=== PATIENT | female | born 1935 | race Caucasian/White ===

== ENCOUNTER 2016-10-19 11:19 | Emergency (ER) | payer MEDICARE, OTHER ==
[~2016-10-19] VITALS: Ht 162.6 cm; Wt 86.4 kg
[~2016-10-19 11:19] MED LIST: CHOL500011 PO; LEVO75TA4 PO
[2016-10-19 11:45] VITALS: BP 171/90; PULSE 72; RESP 20; O2SAT 95
[2016-10-19 12:43] LABS: EOSINOPHILS % (AUTO) 3.1 % (0-5); MONOCYTES % (AUTO) 8.6 % (4-12); Mean Corpuscular Volume 90.7 fL (81-100); NEUTROPHILS % (AUTO) 59.4 % (40-74); Platelet Count 270 bil/L (150-400)
[2016-10-19 13:10] LABS: TROPONIN T < 0.010 ug/L (0.0-0.011)
--- NOTE | 2016-10-19 13:37 | DRSVH ---
PROCEDURE: X-RAY CHEST ONE VIEW, PORTABLE ([id number]) INDICATIONS: CHEST PAIN TECHNIQUE: One view of the chest was acquired. COMPARISON: [facility], , CHEST 1VW (PORTABLE), 02/17/2015, 13:13. FINDINGS: Surgical changes and devices: Right Port-A-Cath is unchanged. Multiple surgical clips are noted overl michael the lung bases. Lungs and pleura: No pleural effusions or pneumothorax. Lungs are clear. Mediastinum: Mediastinal contours appear normal. Heart size is normal. Bones and chest wall: No suspicious bony lesions. Overlying soft tissues appear unremarkable. IMPRESSION: No acute pulmonary process. Dictated by: Jewell Horta M.D. on 10/19/2016 at 13:35 Approved by: Jewell Horta M.D. on 10/19/2016 at 13:35
--- NOTE | 2016-10-19 13:56 | ED.REPORT ---
HPI-General Illness Date of Service Oct 19, 2016 ED Provider: MD Wilfred This is a 81 year old female presenting to the ED with history of hyperlipidemia and hyperparathyroid complaining of sudden onset dizziness that occurred 5 hours ago. Pt was doing chores around her home when she suddenly became dizzy and lightheaded. She immediately sat down and the symptoms resolved within 1-2 minutes. She states that her "eyes are not adjusting right, " and that she just "doesn't feel right." Pt denies fever, chills, nausea, vomiting diaphoresis, or loss of consciousness. Nursing Notes Stated Complaint: PNEUMONIA Chief Complaint: Respiratory Complaints Nursing Notes Reviewed: Yes Allergies: Coded Allergies: Penicillins (Verified Allergy, Severe, RASH, 02/07/15) codeine (Verified Adverse Reaction, Severe, N/V, 02/07/15) Uncoded Allergies: ENVIRONMENTAL (Adverse Reaction, Severe, ASTHMA, 01/22/15) Scheduled Cholecalciferol (Vitamin D3) (Vitamin D3) 5,000 Unit Tablet 5,000 UNIT PO prn Levothyroxine (Levothyroxine) 75 Mcg Tablet 75 MCG PO DAILY General Time Seen by MD: 13:55 Chief Complaint Dizziness Hx Obtained From: Patient Arrived By: Walk-in Sudden in Onset?: Yes Onset Occurred: 5 - 8 hours ago Symptom Duration: Since onset Severity: Current: No pain currently Pertinent Negative: Pt denies other symptoms Recent Healthcare: No recent doctor visit, No recent hospitalization Similar Sx Previous: No Past Medical History Past Medical History Hyperlipidemia hyperparathyroid history of bronchospasm, reactive airway disease GERD (history of erosive esophagitis) Hernia History of mild abnormality LFTs Colon polyps Reports: Cancer Reports: Thyroid disease Past Surgical History Port-A-Cath Breast Surgeries, bilateral lumpectomy for cancer parathyroid exploration Reports: Hysterectomy Smoking History Never Smoker Social History Drug Use: Denies drug use Ambulatory Status Independent NIH Stroke Scale Level of Consciousness: Alert and responsive (0) Ask Month & Age: Both questions right (0) Open/Close Eyes/Hand Fundraising Manager: Performs both tasks (0) Horizontal EO Movements: None (0) Visual Jerome: No visual loss (0) Facial Palsy: Normal symmetry (0) Right Arm Motor Drift (10s): No drift 10 sec (0) Left Arm Motor Drift (10s): No drift 10 sec (0) Right Leg Motor Drift (5s): No drift 5 sec (0) Left Leg Motor Drift (5s): No drift 5 sec (0) Limb Ataxia FNF/Heel-Panda: Ataxia in 1 limb (1) (L leg) Sensation (Arms/Legs/Face): No sensory loss (0) Language Aphasia: No aphasia, normal (0) Dysarthria: No dysarthria, normal (0) Extinction/Inattention: No exctinct/inattent (0) NIHSS Score: 1 Time NIHSS Performed: 14:07 Date NIHSS Performed: Oct 19, 2016 Review of Systems Full Review of Systems Constitutional: Denies: Chills, Fever Respiratory: Denies: Non-productive cough, Shortness of breath GI: Denies: Abdominal pain, Nausea, Vomiting Neurologic: Reports: Dizziness, Lightheaded, Vision change, Denies: Change LOC, Headache, Numbness Complete sys rev & neg: except as marked. Physical Exam Vital Signs Vital Signs Date Time Temp Pulse Resp B/P Pulse Ox O2 Delivery O2 Flow Rate FiO2 10/19/16 15:13 69 14 158/73 98 Room Air 10/19/16 11:45 36.5 72 20 171/90 95 Room Air Initial VS: Reviewed General/Constitutional: Well-developed, Well-nourished Head / Eyes: Atraumatic, Normocephalic, PERRL ENT: Mucous membranes moist, Conjunctiva normal, No scleral icterus Neck: Supple, Non-tender, Full range of motion Respiratory: Breath sounds normal, Clear to auscultation, No respiratory distress Cardiovascular: Regular rate & rhythm, Heart sounds normal, Intact distal pulses Abdomen / GI: Soft, Non-tender, No guarding, No rebound, No distention Extremities: Vascular intact, Neuro intact, No swelling, No tenderness Skin: Warm, Dry, No cyanosis Psychiatric: Mood/affect normal, Behavior normal, Normal thought content Neurologic: Oriented X3 Narrow based gait without ataxia but has a sensation of double vision, lightheadedness, and unsteadiness. NIH stroke scale 1 Interpretation & Diagnostics BRAIN MRI IMPRESSION: 1. Volume loss and small vessel ischemic disease. 2. No acute intracranial abnormality; no recent infarct. Dictated by: Jori Ashford M.D. on 10/19/2016 at 15:11 Approved by: Jori Ashford M.D. on 10/19/2016 at 15:11 Lab Results Interpretation Result Diagram: 10/19/16 1226 10/19/16 1226 Test 10/19/16 12:26 White Blood Count 7.0th/mm3 (3.8-10.1) Red Blood Count 4.86mil/mm3 (3.90-5.20) Hemoglobin 14.6g/dL (12.0-15.6) Hematocrit 44.1% (35.0-46.0) Mean Corpuscular Volume 90.7fL (81-100) Mean Corpuscular Hemoglobin 30.0pg (27.0-35.0) Mean Corpuscular Hemoglobin Concent 33.1% (32.0-37.0) Red Cell Distribution Width 14.6% (12.3-15.4) Platelet Count 270bil/L (150-400) Neutrophils (%) (Auto) 59.4% (40-74) Lymphocytes (%) (Auto) 27.8% (14-46) Monocytes (%) (Auto) 8.6% (4-12) Eosinophils (%) (Auto) 3.1% (0-5) Basophils (%) (Auto) 1.0% (0-3) Sodium Level 141mEq/L (134-144) Potassium Level 4.4mEq/L (3.5-5.2) Chloride Level 105mEq/L (97-108) Carbon Dioxide Level 20mmol/L (18-29) Blood Urea Nitrogen 12mg/dL (8-27) Creatinine 0.78mg/dL (0.57-1.00) Estimat Glomerular Filtration Rate 102mL/min (>59) Glucose Level 100mg/dL (60-99) Calcium Level 8.9mg/dL (8.5-10.1) Total Bilirubin 0.4mg/dL (0.0-1.2) Aspartate Amino Transf (AST/SGOT) 16U/L (0-50) Alanine Aminotransferase (ALT/SGPT) 13U/L (0-32) Alkaline Phosphatase 67U/L (25-165) Troponin T < 0.010ug/L (0.0-0.011) Pro-B-Type Natriuretic Peptide 393.1pg/mL (0-738) Total Protein 6.9g/dL (6.4-8.4) Albumin 4.0g/dL (3.4-5.0) Hold Rebollar Top Tube Received (Received) ECG Interpretation ECG Interpretation: NSR at a rate of 64 Time: 14:06 Interpreted by: ED physician X-Ray Chest Interpretation Chest Xray Interpretation: IMPRESSION: No acute pulmonary process. Dictated by: Jewell Horta M.D. on 10/19/2016 at 13:35 Approved by: Jewell Horta M.D. on 10/19/2016 at 13:35 Re-Eval/Medical Decision Time of Eval: 15:23 Re-Evaluation/Progress Note: Discussed normal lab and imaging results plan for d/c, all questions addressed Counseled Regarding: Diagnosis, Lab results, Need for follow-up, When/why to return to ED Discharge & Departure Primary Impression: Generalized weakness Disposition: Home Discharge Condition All VS Reviewed: Yes Condition: Stable Additional Instructions: Your MRI was normal today, as were your x-rays, EKG and laboratory tests. We did not find a a dangerous cause for your symptoms today. Follow-up with your primary care provider in the next week if your symptoms continue to persist. Return to the emergency department for any new or worsening symptoms. Referrals: [facility] (PCP) Scribe Attestation Portions of this note were transcribed by Bibi Stanford. I, Dr. Hardin personally performed the history, physical exam and medical decision-making; I reviewed and confirmed the accuracy of the information in the transcribed note. Signed by: gabriel Og. 10/19/2016, 15:00. Jerald Hardin MD Oct 19, 2016 13:56 BIBI STANFORD Oct 19, 2016 13:59
[2016-10-19 15:13] VITALS: BP 158/73; PULSE 69; RESP 14; O2SAT 98
--- NOTE | 2016-10-19 15:13 | DRSVH ---
PROCEDURE: MRI BRAIN WITHOUT CONTRAST ([id number]) INDICATIONS: ataxia lef tleg TECHNIQUE: Non-contrast axial T1 spin echo, axial T2 fast spin echo, sagittal and axial FLAIR, coronal T2 fast s pin echo, axial gradient echo, axial diffusion and ADC through the brain. COMPARISON: [facility], , MR STROKE PROTOCOL, 05/18/2016, 19:23. FINDINGS: Image quality: Partially degraded by motion artifact. CSF spaces: Ventricles appear symmetric in size and shape. Basal cisterns are patent. No extra-axi al fluid collections. Brain: No intracranial bleeds or mass effects. There is cerebral volume loss for age. There are pe riventricular and deep white matter chronic small vessel ischemic changes. Brainstem appears normal. Diffusion-weighted images show no acute ischemic insults. No chronic ischemic insults. Normal int ravascular flow voids are present. Skull and face: Calvarial bone marrow is normal in signal. Orbits are normal. Sinuses: Sinuses and mastoids are clear. IMPRESSION: 1. Volume loss and small vessel ischemic disease. 2. No acute intracranial abnormality; no recent infarct. Dictated by: Jori Ashford M.D. on 10/19/2016 at 15:11 Approved by: Jori Asfhord M.D. on 10/19/2016 at 15:11
[2016-10-19 16:29] VITALS: BP 158/73; PULSE 69; RESP 14; O2SAT 98
[2017-02-08] MEDS ORDERED: HYG25 PO (16:02)
== END 2016-10-19 15:55 | disposition home or self-care (01) ==
LOC: SED 11:19
DX: R53.1 Weakness (principal); E78.5 Hyperlipidemia, unspecified; E21.3 Hyperparathyroidism, unspecified; J45.909 Unspecified asthma, uncomplicated; K21.9 Gastro-esophageal reflux disease without esophagitis; E07.9 Disorder of thyroid, unspecified; Z85.3 Personal history of malignant neoplasm of breast; Z88.0 Allergy status to penicillin; Z88.5 Allergy status to narcotic agent

== ENCOUNTER 2016-12-06 11:43 | Observation (INO) | payer MEDICARE, OTHER ==
[2016-12-06] VITALS (7 sets, daily range): BP systolic 136–178; BP diastolic 83–108; PULSE 81–108; RESP 13–20; O2SAT 96–97
[~2016-12-06] VITALS: Ht 161.3 cm; Wt 87.0 kg
--- NOTE | 2016-12-06 12:04 | ED.REPORT ---
HPI-Stroke / CVA Dec 06, 2016 ED Provider: Jerald Hardin MD 81 year old female with a history of hyperlipidemia and presents to the ER complaining of dizziness and double vision. Last known normal 08:00 today. She states that symptoms onset today while getting into the car to come to a routine appointment here a the residency clinic. Symptoms are described primarily as "not feeling right". Upon further questioning she admits to stumbling in her house earlier this morning, and numbness of her lower extremities from the knees down bilaterally onset about an hour ago. Patient denies any weakness, and history of CVA, DM, and HTN. She is a vague historian. Nursing Notes Stated Complaint: SICK/LACK OF BALANCE Chief Complaint: Neuro Symptoms/ Deficits Nursing Notes Reviewed: Yes Allergies: Coded Allergies: Penicillins (Verified Allergy, Severe, RASH, 02/07/15) codeine (Verified Adverse Reaction, Severe, N/V, 02/07/15) Uncoded Allergies: ENVIRONMENTAL (Adverse Reaction, Severe, ASTHMA, 01/22/15) Scheduled Cholecalciferol (Vitamin D3) (Vitamin D3) 5,000 Unit Tablet 5,000 UNIT PO prn ( Reported) Levothyroxine (Levothyroxine) 75 Mcg Tablet 75 MCG PO DAILY (Reported) General Time Seen by Provider: 12:03 Chief Complaint Vision, reduced, Dizziness Hx Obtained From: Patient Arrived By: Walk-in Time last known well 08:00 Sudden in Onset?: Yes Symptom Duration: Since onset Progression Since Onset: Unchanged Context Related History: Denies: Cerebrovascular accident, Diabetes mellitus Similar Sx Previous: No Risk Factors NIH Stroke Scale Level of Consciousness: Alert and responsive (0) Ask Month & Age: 1 question right (1) Open/Close Eyes/Hand Disability Services Coordinator: Performs both tasks (0) Horizontal EO Movements: None (0) (Double vision) Visual Jerome: No visual loss (0) Facial Palsy: Normal symmetry (0) Right Arm Motor Drift (10s): No drift 10 sec (0) Left Arm Motor Drift (10s): No drift 10 sec (0) Right Leg Motor Drift (5s): No drift 5 sec (0) Left Leg Motor Drift (5s): No drift 5 sec (0) Limb Ataxia FNF/Heel-Panda: No ataxia (0) Sensation (Arms/Legs/Face): P-prick dull but felt (1) (Right arm and face, not leg) Language Aphasia: No aphasia, normal (0) Dysarthria: No dysarthria, normal (0) Extinction/Inattention: No exctinct/inattent (0) NIHSS Score: 2 Time NIHSS Performed: 12:08 Date NIHSS Performed: Dec 06, 2016 )( CVA Risk Stratification Age >60 HyperlipidemiaNo Prior CVA/TIA Risk factors reviewed Past Medical History Past Medical History Hyperlipidemia hyperparathyroid history of bronchospasm, reactive airway disease GERD (history of erosive esophagitis) Hernia History of mild abnormality LFTs Colon polyps Reports: Cancer, Denies: Diabetes mellitus, Hypertension, Stroke Reports: Thyroid disease, Denies: Kidney disease, Renal failure, Renal insufficiency Past Surgical History Port-A-Cath Breast Surgeries, bilateral lumpectomy for cancer parathyroid exploration Reports: Hysterectomy Smoking History Never Smoker Social History Drug Use: Denies drug use Ambulatory Status Independent Review of Systems Neurologic: Reports: Dizziness, Numbness, Denies: Focal weakness, Headache, Slurred speech, Syncope, Weakness Complete sys rev & neg: except as marked. Physical Exam Initial Vital Signs Vital Signs (First) Date Time Temp Pulse Resp B/P Pulse Ox O2 Delivery O2 Flow Rate FiO2 12/06/16 11:47 36.8 103 20 178/108 96 12/06/16 13:27 Room Air Initial VS: Reviewed Abdomen / GI: Soft, Non-tender, No guarding, No rebound, No distention Extremities: Vascular intact, Neuro intact, No swelling, No tenderness Skin: Warm, Dry, No cyanosis General/Constitutional: Awake, Alert, No acute distress, Well appearing, Well developed, Well nourished Head / Eyes: Atraumatic, Normocephalic Neck: Supple, Full range of motion, No swelling, Non-tender, No carotid bruit Respiratory / Chest: Breath sounds NL, Breath sounds = bilat, No respiratory distress, No rales, No rhonchi, No wheezing Cardiovascular: Heart rate NL, Regular rhythm, Heart sounds NL, No murmurs, Peripheral circulation NL Neurologic: Speech NL, No motor deficits Mental Status: Positive: Disoriented to time Double vision. See NIH Stroke Scale in the Risk section of this note. Interpretation & Diagnostics Lab Results Interpretation Result Diagram: 12/06/16 1230 12/06/16 1230 Test 12/06/16 12:30 12/06/16 14:38 White Blood Count 7.6th/mm3 (3.8-10.1) Red Blood Count 4.64mil/mm3 (3.90-5.20) Hemoglobin 14.2g/dL (12.0-15.6) Hematocrit 42.4% (35.0-46.0) Mean Corpuscular Volume 91.4fL (81-100) Mean Corpuscular Hemoglobin 30.6pg (27.0-35.0) Mean Corpuscular Hemoglobin Concent 33.5% (32.0-37.0) Red Cell Distribution Width 14.6% (12.3-15.4) Platelet Count 277bil/L (150-400) Neutrophils (%) (Auto) 66.5% (40-74) Lymphocytes (%) (Auto) 22.1% (14-46) Monocytes (%) (Auto) 8.3% (4-12) Eosinophils (%) (Auto) 1.7% (0-5) Basophils (%) (Auto) 1.1% (0-3) Sodium Level 138mEq/L (134-144) Potassium Level 3.8mEq/L (3.5-5.2) Chloride Level 102mEq/L (97-108) Carbon Dioxide Level 22mmol/L (18-29) Blood Urea Nitrogen 9mg/dL (8-27) Creatinine 0.81mg/dL (0.57-1.00) Estimat Glomerular Filtration Rate 98mL/min (>59) Glucose Level 109mg/dL (60-99) Calcium Level 8.9mg/dL (8.5-10.1) Total Bilirubin 0.4mg/dL (0.0-1.2) Aspartate Amino Transf (AST/SGOT) 15U/L (0-50) Alanine Aminotransferase (ALT/SGPT) 14U/L (0-32) Alkaline Phosphatase 64U/L (25-165) Total Protein 6.9g/dL (6.4-8.4) Albumin 4.1g/dL (3.4-5.0) Urine Color Straw (YELLOW) Urine Appearance Hazy (CLEAR,HAZY) Urine pH 6.0 (5.0-8.0) Urine Specific [place] 1.010 (1.003-1.035) Urine Protein Negativemg/dL (NEG,TRACE) Urine Glucose (UA) Negativemg/dL (NEGATIVE) Urine Ketones Negativemg/dL (NEGATIVE) Urine Occult Blood Trace (NEGATIVE) Urine Nitrite Negative (NEGATIVE) Urine Bilirubin Negative (NEGATIVE) Urine Urobilinogen Normalmg/dL (NORMAL) Urine Leukocyte Esterase Trace (NEGATIVE) ECG Interpretation ECG Interpretation: Sinus rhythm, rate 72 PAC Low voltage, percordial leads Time: 13:22 Interpreted by: ED physician CT Head Interpretation IMPRESSION: 1. Volume loss and small vessel ischemic disease. 2. No acute process. Dictated by: Jori Ashford M.D. on 12/06/2016 at 13:26 Approved by: Jori Ashford M.D. on 12/06/2016 at 13:27 Study: Head CT no contrast Interpretation / Wet Read by: Interpret - Radiologist Re-Eval/Medical Decision Source of Hx: Old records Re-Evaluation/Progress : Time of Eval: 13:55 Re-Evaluation/Progress Note: Discussed lab and radiology results and plan to discharge. Patient is amenable to the plan. All other questions addressed. Consultation : Referral / Consult Name: Ismael Altamirano MD Consulted With: Hospitalist Call Returned at: 14:20 Home Health Clinical Liaison: Agrees with eval, Agrees with plan, Accepts admit Counseled Regarding: Diagnosis, Lab results, Need for admission Patient Discharge & Departure Impression: Primary Impression: CVA (cerebral vascular accident) Disposition: ADMITTED TO HOSPITAL Discharge Condition All VS Reviewed: Yes Condition: Stable Referrals: [facility] (PCP) Scribe Attestation Portions of this note were transcribed by Elvin Glasgow. I, Dr. Hardin, personally performed the history, physical exam and medical decision-making; I reviewed and confirmed the accuracy of the information in the transcribed note. Signed by: Jamarcus Chambers, 12/06/2016 and 14:21 copies to: [facility] Jerald Hardin MD Dec 06, 2016 12:04 ELVIN GLASGOW Dec 06, 2016 12:13
[2016-12-06 12:51] LABS: BASOPHILS % (AUTO) 1.1 % (0-3); EOSINOPHILS % (AUTO) 1.7 % (0-5); MONOCYTES % (AUTO) 8.3 % (4-12); Mean Corpuscular Hemoglobin 30.6 pg (27.0-35.0); Mean Corpuscular Volume 91.4 fL (81-100); NEUTROPHILS % (AUTO) 66.5 % (40-74); Platelet Count 277 bil/L (150-400)
--- NOTE | 2016-12-06 13:28 | DRSVH ---
PROCEDURE: CT BRAIN WITHOUT CONTRAST ([id number]) INDICATIONS: weakness, double vision TECHNIQUE: Noncontrast 4.5 mm thick angled axial sections acquired from the foramen magnum to the vertex, with c oronal reformats. COMPARISON: None. FINDINGS: Image quality: Excellent. CSF spaces: Basal cisterns are patent. No extra-axial fluid collections. The ventricles are symmet berenice in size and shape. Brain: No intracranial bleeds or masses. There is cerebral volume loss for age, with resultant vent ricular and sulcal prominence. There are periventricular and deep white matter chronic small vessel ischemic changes. There is intracranial internal carotid artery atherosclerosis. Skull and face: Calvarium and visualized facial bones appear intact, without suspicious lesions. Sinuses: Visualized sinuses and mastoids are clear. IMPRESSION: 1. Volume loss and small vessel ischemic disease. 2. No acute process. Dictated by: Jori Ashford M.D. on 12/06/2016 at 13:26 Approved by: Jori Ashford M.D. on 12/06/2016 at 13:27
[2016-12-06] MEDS ORDERED: 0.9% Sodium Chloride 1,000 ML IV SCH (13:40)
[2016-12-06] MEDS ORDERED: Polyethylene Glycol (PEG) 17 Gm Powder PO PRN (14:30)
[2016-12-06] MEDS ORDERED: Alum-Mag Hydrox-Simeth 30 mL Suspension PO PRN (14:30)
[2016-12-06] MEDS ORDERED: Ondansetron 2 mg/mL 2 mL Inj IV PRN (14:30)
[2016-12-06 14:47] LABS: APPEARANCE,URINE HAZY (CLEAR,HAZY); COLOR,URINE STRAW (YELLOW); OCCULT BLOOD,URINE TRACE (NEGATIVE); UROBILINOGEN,URINE NORMAL (NORMAL)
--- NOTE | 2016-12-06 17:23 | PCM.HPMED ---
Subjective Date of Service Dec 06, 2016 Primary Provider: Admitting Physician: Primary Care Physician: Clinic,[facility] Residency Attending Physician: Chief Complaint: Dizziness with diplopia History of Present Illness: Edith Sheth is a 81 year old female with Hyperlipidemia, Hypertension and Breast Cancer who presents to [facility] Emergency department complaining of dizziness and double vision. Last known normal 08:00 today. Difficult due to patient being a vague historian. She states that symptoms onset today while getting into the car to come to a routine appointment here a the residency clinic. Symptoms are described primarily as "not feeling right". She admits to stumbling in her house earlier this morning, and numbness of her lower extremities from the knees down bilaterally onset about an hour ago. Now she only complains of generalized weakness She reports the diplopia is an intermittent problem that comes and goes. Usually triggered when she develops a cold. But this episode is more persistent and longer than her previous episodes She has multiple brain MRI done in the past and had some lesions that Dr Wadsworth suspects are related to microvascular infarcts from uncontrolled hypertension rather than Multiple sclerosis. She previously takes an Aspirin daily but not recently She had a object penetrate her left eye as well and had some scarring since. She follows up closely with an steel rule inspector She lives by herself and able to perform activities of daily living but lately she has been tired and had her neighbour wash he dishes for her Case discussed with Dr Hardin, CT head negative and NIH score was low therefore not a candidate for TPA. Review of Systems: Pertinent positives as noted in HPI. All other systems were reviewed and are negative Allergies Coded Allergies: Penicillins (Verified Allergy, Severe, RASH, 12/06/16) codeine (Verified Adverse Reaction, Severe, N/V, 12/06/16) Uncoded Allergies: ENVIRONMENTAL (Adverse Reaction, Severe, ASTHMA, 01/22/15) Home Medications From Edith Ledesma Shanice. [id number] 1935 12/03/2016 01:30 PM 10/06 fluconazole 100 mg tablet take 2 tablet by oral route first day, then 1 tablet for 6 days after levothyroxine 75 mcg tablet TAKE ONE TABLET BY MOUTH EVERY DAY FOR THYROID PMH Hypertension Vitamin d deficiency Hypothyroid Bilateral Breast cancer, lymph node positive treated with surgery, chemotherapy and radiation Hyperlipidemia Erosive esophagitis Fatigue and Myalgia Abnormal MRI findings with diplopia, Neurology thinks it was microvascular lesions from uncontrolled Hyperten rater than Multiple sclerosis . Surgical History Parathyroidectomy Breast cancer surgery Family History Mother had VT and from it age 91 Father from Renal failure Brother had Multiple Myeloma Social History Hx Alcohol Use: No Hx Substance Use: No Hx Tobacco Use: No Smoking Status: Never Smoker Living Arrangement: Alone Exam Vital Signs Vital Sign - Last Date Time Temp Pulse Resp B/P Pulse Ox O2 Delivery O2 Flow Rate FiO2 12/06/16 13:27 36.7 83 13 145/90 96 Room Air Exam General: Alert, Oriented X3, Cooperative, No acute Distress Eyes: PERRLA, Scleral Anicteric Mouth: Mouth Normal, Mucous Membranes Moist/[place] Neck: Supple, no Thyromegaly, trachea central. Chest & Lungs: Clear to auscultation & percussion, No adventitious breath sounds, no crackles, no wheeze Cardiovascular: Normal S1, Normal S2, No Murmurs/Rubs/Gallops, Regular Rate/ Rhythm, (No JVD, no peripheral edema) Pulses: Radial (present and equal), Dorsalis Pedi (present and equal) Abdomen: Soft, Non-tender, Non-distended, Normoactive bowel tones. Musculoskeletal: Unremarkable. Normal range of motion, no swollen or erythematous joints Extremities: No edema, no cyanosis, no clubbing. Skin: No rashes. Warm and dry, no erythematous areas : Lymphatic: Lymph nodes Cervical and Axillary not palpable Neurological Mental Status: Alert and Oriented, no slurred speech Cranial nerves: PERRL. Extra ocular movements are intact with no nystagmus. Visual hernandez are full to direct confrontation. The face is symmetric, tongue midline, Motor: Normal tone. She is able to hold both arms and legs up off the bed and good automatic print developer bilaterally Sensation: Intact to light touch throughout Coordination: All cerebellar testing intact Reflexes: 2 throughout, Gait: not tested Lab and Diagnostics Labs Laboratory Tests Test 12/06/16 12:30 White Blood Count 7.6th/mm3 (3.8-10.1) Red Blood Count 4.64mil/mm3 (3.90-5.20) Hemoglobin 14.2g/dL (12.0-15.6) Hematocrit 42.4% (35.0-46.0) Mean Corpuscular Volume 91.4fL (81-100) Mean Corpuscular Hemoglobin 30.6pg (27.0-35.0) Mean Corpuscular Hemoglobin Concent 33.5% (32.0-37.0) Red Cell Distribution Width 14.6% (12.3-15.4) Platelet Count 277bil/L (150-400) Neutrophils (%) (Auto) 66.5% (40-74) Lymphocytes (%) (Auto) 22.1% (14-46) Monocytes (%) (Auto) 8.3% (4-12) Eosinophils (%) (Auto) 1.7% (0-5) Basophils (%) (Auto) 1.1% (0-3) Sodium Level 138mEq/L (134-144) Potassium Level 3.8mEq/L (3.5-5.2) Chloride Level 102mEq/L (97-108) Carbon Dioxide Level 22mmol/L (18-29) Blood Urea Nitrogen 9mg/dL (8-27) Creatinine 0.81mg/dL (0.57-1.00) Estimat Glomerular Filtration Rate 98mL/min (>59) Glucose Level 109mg/dL (60-99) Calcium Level 8.9mg/dL (8.5-10.1) Total Bilirubin 0.4mg/dL (0.0-1.2) Aspartate Amino Transf (AST/SGOT) 15U/L (0-50) Alanine Aminotransferase (ALT/SGPT) 14U/L (0-32) Alkaline Phosphatase 64U/L (25-165) Total Protein 6.9g/dL (6.4-8.4) Albumin 4.1g/dL (3.4-5.0) Result Diagram: 12/06/16 1230 12/06/16 1230 X-Rays, CTs and MRIs CT BRAIN WITHOUT CONTRAST 12/06/16 IMPRESSION: 1. Volume loss and small vessel ischemic disease. 2. No acute process. Dictated by: Jori Ashford M.D. on 12/06/2016 at 13:26 Approved by: Jori Ashford M.D. on 12/06/2016 at 13:27 Assessment & Plan Edith Sheth is a 81 year old female with Hyperlipidemia, Hypertension and Breast Cancer who presents to [facility] Emergency department complaining of dizziness and double vision. 1. Acute on Chronic Diplopia. Present on admission Stroke risks factors includes age, Hypertension, Hyperlipidemia and family history (Mother from Stroke). Differential diagnosis includes Multiple sclerosis, Metastatic breast cancer. Patient not currently on any statins or antihypertensive medications. - monitor on telemetry - MRA/MRI brain, Carotid Ultrasound - Aspirin for antiplatelet therapy, recommend continuing this daily - Speech, OT and Physical therapy assessment - consider discussion with Neurology if there are any findings on MRI 2. Hypothyroidism - continue Synthroid 75 mcg daily 3. Breast Cancer - recommend a follow up with Dr Samaniego to check for any remission - Acetaminophen as needed for mild pain/fever/headache - Bowel regimen as needed - Antiemetic as needed Patient is admitted under observation status with expected length of stay less than 2 midnights due to severity of presenting symptoms, risk of adverse event, and complexity of treatment plan. . Resuscitation Status: CPR: Attempt Resuscitation Ismael Altamirano MD Dec 06, 2016 14:32
[2016-12-06] MEDS: 0.9% Sodium Chloride 250 ML IV SCH (17:36)
[2016-12-06] MEDS ORDERED: Sodium Chloride LOK Flush 10 mL Syringe IVFLUSH PRN ×2 (17:40)
[2016-12-06] MEDS ORDERED: HepLOK Flush 100 unit/mL 5 mL Inj IVFLUSH PRN (17:40)
[2016-12-06] MEDS: Heparin 5,000 Unit/mL Inj SUBQ SCH (18:14)
--- NOTE | 2016-12-06 19:28 | NUR ---
Admit Pt arrived [place] [facility] at 1540, able to transfer from [facility] bed without assistance, no complaints of pain, nausea or dizziness at time. admit done.
--- NOTE | 2016-12-06 19:30 | DRSVH ---
PROCEDURE: US BILATERAL DUPLEX DOPPLER IMAGING OF THE CAROTIDS ([id number]) INDICATIONS: Evaluate stroke follow up TECHNIQUE: Color and pulse Doppler interrogation was performed of both carotid systems, with image documentation and velocity measurements. COMPARISON: None. FINDINGS: All stenosis calculations are based on NASCET criteria. Right side: Brachial blood pressure: 145/90 mm Hg. Common carotid artery peak systolic velocity: 101 cm/sec. Internal carotid artery peak systolic velocity: 85 cm/sec. Internal carotid artery end diastolic velocity: 26 cm/sec. External carotid artery peak systolic velocity: 72 cm/sec. ICA/CCA peak systolic ratio: 0.8. Harding scale imaging description: Mild plaque at the bifurcation. Percent internal carotid artery stenosis: Less than 50%. Vertebral artery: Flow direction is antegrade. Left side: Brachial blood pressure: 136/86 mm Hg. Common carotid artery peak systolic velocity: 102 cm/sec. Internal carotid artery peak systolic velocity: 98 cm/sec. Internal carotid artery end diastolic velocity: 27 cm/sec. External carotid artery peak systolic velocity: 86 cm/sec. ICA/CCA peak systolic ratio: 1.0. Harding scale imaging description: Mild plaque at the bifurcation. Percent internal carotid artery stenosis: Less than 50%. Vertebral artery: Flow direction is antegrade. IMPRESSION: Less than 50% stenosis of the internal carotid arteries bilaterally. Dictated by: Jewell Horta M.D. on 12/06/2016 at 19:27 Approved by: Jewell Horta M.D. on 12/06/2016 at 19:28
--- NOTE | 2016-12-06 20:36 | NUR ---
Case Management: JEANNE explained to patient at 2024, all questions answered. Signed original placed on chart, pt given a copy. Pt refused a copy of the Medicare Part D Drug info stating she didn't have Part D. Lore Meza RN
[2016-12-07] MEDS: Heparin 5,000 Unit/mL Inj SUBQ SCH ×3 (01:22→18:11)
--- NOTE | 2016-12-07 04:36 | NUR ---
Diet pt has been on a pureed diet, nectar thick liquids pending a speech eval by the speech pathologists. last night she was given a cup of thickened liquid and had a coughing fit. pt is convinced that it is the thickening agent in the water that makes her cough. she states "I have been drinking regular water from the tap all day with no problems". she said "if that's what the doctors want me to drink then the doctors are trying to kill me". pt was adamant that she could not drink the thickened water. primary nurse consulted with charge nurse who said to have pt sign a diet against medical advice form. the reason the thickened liquid was ordered was explained to pt. it was explained that without a speech pathologist eval we could not know if she was at risk for aspirating. the risks of aspiration was also explained in detail to patient. patient then signed the diet against medical advice form and was given thin water. she has had no coughing or signs of aspiration while drinking thin water. pt does still agree to the pureed diet. will continue to monitor.
[2016-12-07 05:06] VITALS: BP 142/74; PULSE 80; RESP 16; O2SAT 95
--- NOTE | 2016-12-07 09:03 | PCM.PNMED ---
Subjective Date of Service Dec 07, 2016 Subjective Patient is wanting to go home. She says she gets hypertensive whever someone agitates her and she will never take medications for it. She believes she has a thyroid condition and breast cancer but no other diseases. She denies ever being on a HTN medication. She wanted to sign out AMA, I met with her and explained to her we would like to watch her HTN before she leaves so she can be treated appropriately, she agreed to stay. But then, later declined medications States her dizziness symptoms resolved. Denies fevers, chills, nausea. Eye symptoms are chronic and currently not bothering her. Exam Vital Signs Vital Sign - Last Date Time Temp Pulse Resp B/P Pulse Ox O2 Delivery O2 Flow Rate FiO2 12/07/16 05:06 36.3 80 16 142/74 95 Room Air Intake and Output 12/06/16 12/06/16 12/07/16 Cumulative From/Thru 15:00 23:00 07:00 12/06/16 11:47 - 12/07/16 05:49 Intake Total 1270 ml 1270 ml Output Total 725 ml 725 ml Balance 545 ml 545 ml Intake Oral 1000 ml 1000 ml IV Total 270 ml 270 ml Output Urine Total 725 ml 725 ml # Bowel Movements 0 0 Exam Eyes: [place] conjunctivae. No ptosis, PERRL Neck: No masses, trachea midline, no thyromegaly Lungs: CTA with normal respiratory effort CV: RRR, no murmurs/rubs/gallops, normal PMI GI: Soft, non-tender with no hepatosplenomegaly MSK: Normal gait and station, no digital cyanosis Skin: Warm and dry. No rash, lesions or ulcers Psych: A&O X3, with resigned affect IVs and Medications Medications Reviewed: Medications were reviewed in detail Lab and Diagnostics CBC Test 12/08/16 05:35 White Blood Count 4.9th/mm3 (3.8-10.1) Red Blood Count 4.38mil/mm3 (3.90-5.20) Hemoglobin 12.9g/dL (12.0-15.6) Hematocrit 39.8% (35.0-46.0) Mean Corpuscular Volume 90.9fL (81-100) Mean Corpuscular Hemoglobin 29.5pg (27.0-35.0) Mean Corpuscular Hemoglobin Concent 32.4% (32.0-37.0) Red Cell Distribution Width 14.4% (12.3-15.4) Platelet Count 279bil/L (150-400) Neutrophils (%) (Auto) 50.7% (40-74) Lymphocytes (%) (Auto) 30.8% (14-46) Monocytes (%) (Auto) 11.0% (4-12) Eosinophils (%) (Auto) 5.5% (0-5) Basophils (%) (Auto) 1.8% (0-3) CMP Test 12/06/16 12:30 12/08/16 05:35 Hemoglobin A1c 5.5% Total Bilirubin 0.4mg/dL Aspartate Amino Transf (AST/SGOT) 15U/L Alanine Aminotransferase (ALT/SGPT) 14U/L Alkaline Phosphatase 64U/L Total Protein 6.9g/dL Albumin 4.1g/dL Sodium Level 141mEq/L Potassium Level 4.3mEq/L Chloride Level 106mEq/L Carbon Dioxide Level 23mmol/L Blood Urea Nitrogen 14mg/dL Creatinine 0.76mg/dL Estimat Glomerular Filtration Rate 105mL/min Glucose Level 101mg/dL Calcium Level 8.2mg/dL Result Diagram: 12/06/16 1230 12/06/16 1230 X-Rays, CTs and MRIs CT BRAIN WITHOUT CONTRAST 12/06/16 IMPRESSION: 1. Volume loss and small vessel ischemic disease. 2. No acute process. Dictated by: Jori Ashford M.D. on 12/06/2016 at 13:26 Approved by: Jori Ashford M.D. on 12/06/2016 at 13:27 ROS: Gen.: No weight gain patient has been having fevers and malaise Eyes: no visual disturbances or blurring vision HEENT: No nose/throat drainage, no pain in ears or throat, no hearing loss Lymph: No lymph nodes noted Cardiac: No chest pain, orthopnea, PND, palpitations , pedal edema or +dyspnea on exertion Pulmonary: wheezing or bringing up of sputum + worsening dyspnea and cough, left-sided chest pain GI: No anorexia nausea vomiting blood or black in the stool : no dysuria hematuria urinary frequency or decrease in urine output Musculoskeletal: Joint swelling no joint pain no new muscle aches or back pain Neuro: No syncope, seizures no loss of consciousness no new focal weakness, numbness or tingling Psychiatric: New new anxiety insomnia or depression Endocrine: No new heat or cold intolerances polyuria or polydipsia Hematology: No lymphadenopathy or easy bleeding or bruising noted skin: No new rashes, stasis dermatitis Physical Exam Template: Exam: NAD BP 126/80 HR 66 RR 20 [facility] Diagnostic Imaging Department [place], [place] [id number] Patient Name: HERNANDEZ ADAMS MR#: [id number] Location: [facility] Ordering Phys: Ismael Altamirano MD Date of Service: 12/07/16 0800 PROCEDURE: MRI BRAIN WITHOUT CONTRAST ([id number]) INDICATIONS: stroke TECHNIQUE: Non-contrast axial T1 spin echo, axial T2 fast spin echo, sagittal and axial FLAIR, coronal T2 fast spin echo, axial gradient echo, axial diffusion and ADC through the brain. COMPARISON: None. FINDINGS: Image quality: Limited by motion artifact. CSF spaces: Ventricles appear symmetric in size and shape. Basal cisterns are patent. No extra-axial fluid collections. Brain: No intracranial bleeds or mass effects. There is cerebral volume loss for age. There are periventricular and deep white matter chronic small vessel ischemic changes. Brainstem appears normal. Diffusion-weighted images show no acute ischemic insults. No chronic ischemic insults. No susceptibility weighted abnormalities are identified in the brain parenchyma. Normal intravascular flow voids are present. Skull and face: Calvarial bone marrow is normal in signal. Orbits are normal. Sinuses: Sinuses and mastoids are clear. IMPRESSION: 1. No acute intracranial disease process. 2. No areas of acute or chronic infarction. 3. Moderate, diffuse lung loss. 4. Severe periventricular and subcortical white matter chronic microvascular ischemic changes. Dictated by: Roberta Perkins MD, PhD on 12/07/2016 at 14:09 Approved by: Roberta Perkins MD, PhD on 12/07/2016 at 14:13 [facility] Diagnostic Imaging Department [place], [place] [id number] Patient Name: HERNANDEZ ADAMS MR#: [id number] Location: [facility] Ordering Phys: Ismael Altamirano MD Date of Service: 12/06/16 1421 PROCEDURE: US BILATERAL DUPLEX DOPPLER IMAGING OF THE CAROTIDS ([id number]) INDICATIONS: Evaluate stroke follow up TECHNIQUE: Color and pulse Doppler interrogation was performed of both carotid systems, with image documentation and velocity measurements. COMPARISON: None. FINDINGS: All stenosis calculations are based on NASCET criteria. Right side: Brachial blood pressure: 145/90 mm Hg. Common carotid artery peak systolic velocity: 101 cm/sec. Internal carotid artery peak systolic velocity: 85 cm/sec. Internal carotid artery end diastolic velocity: 26 cm/sec. External carotid artery peak systolic velocity: 72 cm/sec. ICA/CCA peak systolic ratio: 0.8. Harding scale imaging description: Mild plaque at the bifurcation. Percent internal carotid artery stenosis: Less than 50%. Vertebral artery: Flow direction is antegrade. Left side: Brachial blood pressure: 136/86 mm Hg. Common carotid artery peak systolic velocity: 102 cm/sec. Internal carotid artery peak systolic velocity: 98 cm/sec. Internal carotid artery end diastolic velocity: 27 cm/sec. External carotid artery peak systolic velocity: 86 cm/sec. ICA/CCA peak systolic ratio: 1.0. Harding scale imaging description: Mild plaque at the bifurcation. Percent internal carotid artery stenosis: Less than 50%. Vertebral artery: Flow direction is antegrade. IMPRESSION: Less than 50% stenosis of the internal carotid arteries bilaterally. Dictated by: Jewell Horta M.D. on 12/06/2016 at 19:27 Approved by: Jewell Horta M.D. on 12/06/2016 at 19:28 Assessment & Plan Hernandez Adams is a 81 year old female with Hyperlipidemia, Hypertension and Breast Cancer who presents to [facility] Emergency department complaining of dizziness and double vision. 1. Acute on Chronic Diplopia. Present on admission Stroke risks factors includes age, Hypertension, Hyperlipidemia and family history (Mother from Stroke). Differential diagnosis includes Multiple sclerosis, Metastatic breast cancer. Patient not currently on any statins or antihypertensive medications. - monitor on telemetry - MRA/MRI brain, Carotid Ultrasound: Negative for acute stroke and carotid severe stonosis - Aspirin for antiplatelet therapy, recommend continuing this daily - Speech, OT and Physical therapy assessment: She passed speech eval - consider discussion with Neurology if there are any findings on MRI: Not needed as above 2. Hypothyroidism - continue Synthroid 75 mcg daily 3. Breast Cancer - recommend a follow up with Dr Samaniego to check for any remission - Acetaminophen as needed for mild pain/fever/headache - Bowel regimen as needed - Antiemetic as needed 4. HTN: She declined medications as above. Patient is admitted under observation status with expected length of stay less than 2 midnights due to severity of presenting symptoms, risk of adverse event, and complexity of treatment plan. She will be discharged tomorrow . VTE Prophylaxis: Sub-Q Heparin (Unfractionated) VTE Mechanical Devices: Intermittant Pneumatic CD Resuscitation Status: CPR: Attempt Resuscitation Blanche Sun DO Dec 07, 2016 09:03
--- NOTE | 2016-12-07 09:40 | NUR ---
Evaluation completed. Please go to "Notes" then click on "Assessments and Notes" (bottom left corner of screen). Then select appropriate discipline tab on top of screen.
[2016-12-07 09:56] VITALS: BP 161/75; PULSE 75; RESP 18; O2SAT 98
[2016-12-07 10:07] LABS: Mean Corpuscular Hemoglobin 30.1 pg (27.0-35.0); Mean Corpuscular Volume 92.2 fL (81-100)
[2016-12-07 10:31] VITALS: PULSE 72
--- NOTE | 2016-12-07 14:14 | DRSVH ---
PROCEDURE: MRI BRAIN WITHOUT CONTRAST ([id number]) INDICATIONS: stroke TECHNIQUE: Non-contrast axial T1 spin echo, axial T2 fast spin echo, sagittal and axial FLAIR, coronal T2 fast s pin echo, axial gradient echo, axial diffusion and ADC through the brain. COMPARISON: None. FINDINGS: Image quality: Limited by motion artifact. CSF spaces: Ventricles appear symmetric in size and shape. Basal cisterns are patent. No extra-axi al fluid collections. Brain: No intracranial bleeds or mass effects. There is cerebral volume loss for age. There are pe riventricular and deep white matter chronic small vessel ischemic changes. Brainstem appears normal. Diffusion-weighted images show no acute ischemic insults. No chronic ischemic insults. No suscepti bility weighted abnormalities are identified in the brain parenchyma. Normal intravascular flow voids are present. Skull and face: Calvarial bone marrow is normal in signal. Orbits are normal. Sinuses: Sinuses and mastoids are clear. IMPRESSION: 1. No acute intracranial disease process. 2. No areas of acute or chronic infarction. 3. Moderate, diffuse lung loss. 4. Severe periventricular and subcortical white matter chronic microvascular ischemic changes. Dictated by: Roberta Perkins MD, PhD on 12/07/2016 at 14:09 Approved by: Roberta Perkins MD, PhD on 12/07/2016 at 14:13
--- NOTE | 2016-12-07 15:25 | NUR ---
Social Work- Initial Assessment Data: See Initial Assessment. Pt is a 81 year old female admitted 12/06/16 for CVA per H&P. Pt's insurance is Medicare and [employer]. Pt's PCP is [facility]. TEQUILA met with patient at bedside regarding discharge planning, TEQUILA role explained. Pt was alert and oriented x3. Pt resides alone in a home on [address] where she remains independent with her ADLs. Pt uses no DME and continues to drive. Pt has no HH or SNF history. Pt has no LTC or VA benefits. Pt requested DPOA paperwork from TEQUILA, SW provided this. Pt to discharge via POV to [facility] to stay for one night for a oncology appointment in [place] before driving home independently. Pt aware of booking process for [facility]. No anticipated discharge needs. SW left phone number and plan on white board. TEQUILA will continue to follow. Assessment: Pt who is independent at base. Plan: Pt to discharge home via POV. No anticipated discharge needs. TEQUILA will continue to follow. CURRY Braga Addendum: 12/07/16 at 1529 by RITA CAO SS Amended: Links added.
[2016-12-07 17:13] VITALS: BP 145/80; PULSE 70; RESP 18; O2SAT 95
--- NOTE | 2016-12-07 17:16 | DRSVH ---
[facility] [address] [place] [address] Echocardiogram Report Name: HERNANDEZ ADAMS Date: Height: 64 in Hospital Exam Location: [facility] Weight: 188 lb Gender: Female BSA: 1.9 m2 : 1935 Age: 81 yrs BP: 142/74 mmHg Reason For Study: STROKE Ordering Physician: Performed By: Clayton Thapa Interpretation Summary The ejection fraction is estimated to be 55-60%. There are no obvious focal wall motion abnormalities noted but poor endocardial definition reduces the sensitivity for the detection of such. The interatrial septum is intact with no evidence for an atrial septal defect. There is no significant valvular heart disease. Procedure: A two-dimensional transthoracic echocardiogram with color flow and Doppler was performed. The study quality was technically adequate. Comparison is made with the echocardiogram of 10/31/07. A contrast injection of Definity was performed to improve assessment of LV function. The patient was in normal sinus rhythm during the exam. Left Ventricle: The left ventricle is normal in size. There is normal left ventricular wall thickness. There is no thrombus. The ejection fraction is estimated to be 55-60%. There are no obvious focal wall motion abnormalities noted but poor endocardial definition reduces the sensitivity for the detection of such. Right Ventricle: The right ventricle is normal in size and function. Atria: Both atria are normal in size. The interatrial septum is intact with no evidence for an atrial septal defect. Mitral Valve: The mitral valve is normal in structure and function. There is no mitral regurgitation noted. Aortic Valve: The aortic valve is trileaflet. The aortic valve opens well. No aortic regurgitation is present. Tricuspid Valve: The tricuspid valve is normal in structure and function. There is a trace or physiologic amount of tricuspid regurgitation. Pulmonary artery pressures cannot be estimated because of the lack of a measurable TR jet velocity. Pulmonic Valve: The pulmonic valve is not well visualized. There is trace pulmonic regurgitation. Great Vessels: The aortic root is normal size. The dimensions of the ascending aorta are normal. The pulmonary artery is normal size. The IVC is of normal diameter and collapses greater than 50% with a sniff. This suggests a low right atrial pressure of 3 mm Hg. Pericardium/ Pleura There is no pericardial effusion. There is no pleural effusion. MMode/2D Measurements & Calculations LVIDd: 4.7 cm LA dimension: 2.3 cm RA long axis LVOT diam LVIDs: 3.2 cm FS: 32.7 % LA A2 area: 17.8 cm RA area AoV Opening EPSS: 0.73 cm LA A4 area: 16.0 cm IVSd: 0.99 cm LA length (vol): 5.2 cm: 11.4 cm Ao root diam LVPWd: 0.67 cm LA vol: 46.5 ml RA vol LA vol index : 29.1 ml Aortic Jxn RA : 15.3 mm2 asc Aorta IVC diam: 1.5 cm Diam: 3.4 cm LV vaughn. diameter/BSA LV sys. diameter/BSA (cm/m^2): 2.5 (cm/m^2): 1.7 Doppler Measurements & Calculations Ao V2 max MV E max sky MV E/A: 0.41 PA V2 max : 123.1 cm/sec : 37.6 cm/sec Med Peak E' Sky : 87.0 cm/sec Ao max P.1 mmHg MV A max sky PA mean PG Ao mean P.9 mmHg : 90.8 cm/sec E/E' med: 10.5 LVOT Max Sky Pulm A Revs Sky PA Accel Time : 95.5 cm/sec : 0.07 sec Pulm A Revs Dur ABBY(I,D): 3.6 cm sev ratio: 0.86 MV A dur : 0.15 sec MV dec time: 0.25 secAo V2 mean LV V1 max PG PA V2 mean : 96.8 cm/sec : 61.5 cm/sec Ao V2 VTI: 27.9 cm LV V1 VTI PA pr(Accel) : 24.1 cm : 49.1 mmHg ABBY(V,D): 3.3 cm2 ABBY indexed to BSA Jean Claude Kuhns Dur - MV (cm^2/m^2): 1.9 A Dur: -0.04 msec Electronically signed by: Jeremias Weaver on Reading Physician:12/07/2016 11:43 AM
[2016-12-07] MEDS: 0.9% Sodium Chloride 250 ML IV SCH (18:11)
[2016-12-07 19:29] VITALS: BP 160/82; PULSE 89; RESP 18; O2SAT 96
--- NOTE | 2016-12-07 20:02 | NUR ---
Activity Pt up frequently, does not use call light when getting up, Bed alarm on. encouraged call light use, Pt became very upset with frequently setting off bed alarm. RN sat and talked with patient until she calmed down, explained the purpose of the call light and how it was because we want to keep her safe. encouraged pt to use call light before getting up. Pt was off floor to MRI, and had Echo today. Pt wanted to go home, agreed to stay the night after talking to MD.
[2016-12-08 00:30] VITALS: BP 155/82; PULSE 74; RESP 16; O2SAT 97
[2016-12-08] MEDS: Heparin 5,000 Unit/mL Inj SUBQ SCH ×2 (00:44→07:51)
[2016-12-08 04:11] VITALS: PULSE 66
[2016-12-08 04:30] VITALS: BP 161/83; PULSE 62; RESP 16; O2SAT 97
[2016-12-08 05:44] LABS: BASOPHILS % (AUTO) 1.8 % (0-3); EOSINOPHILS % (AUTO) 5.5 % (0-5); Mean Corpuscular Hemoglobin 29.5 pg (27.0-35.0); Mean Corpuscular Volume 90.9 fL (81-100); NEUTROPHILS % (AUTO) 50.7 % (40-74); Platelet Count 279 bil/L (150-400)
[2016-12-08] MEDS: 0.9% Sodium Chloride 250 ML IV SCH (06:29)
[2016-12-08 09:23] VITALS: BP 147/75; PULSE 88; RESP 18; O2SAT 96
--- NOTE | 2016-12-08 11:07 | PCM.DC.MED ---
Discharge Summary Date of Service Dec 08, 2016 Dates of Hospitalization Date of Hospital Admission Dec 06, 2016 at 14:56 Date of Discharge: Dec 08, 2016 Providers: Admitting Physician: Ismael Altamirano MD [facility]ending Physician: Ismael Altamirano MD Diagnosis at Time of Discharge Diagnosis at Time of Discharge Acute on chronic double vision, hypothyroidism, breast cancer, hypertension Consultations Speech Eval, PT/OT Procedures XRay, CTs & MRIs CT BRAIN WITHOUT CONTRAST 12/06/16 IMPRESSION: 1. Volume loss and small vessel ischemic disease. 2. No acute process. Dictated by: Jori Ashford M.D. on 12/06/2016 at 13:26 Approved by: Jori Ashford M.D. on 12/06/2016 at 13:27 ROS: Gen.: No weight gain patient has been having fevers and malaise Eyes: no visual disturbances or blurring vision HEENT: No nose/throat drainage, no pain in ears or throat, no hearing loss Lymph: No lymph nodes noted Cardiac: No chest pain, orthopnea, PND, palpitations , pedal edema or +dyspnea on exertion Pulmonary: wheezing or bringing up of sputum + worsening dyspnea and cough, left-sided chest pain GI: No anorexia nausea vomiting blood or black in the stool : no dysuria hematuria urinary frequency or decrease in urine output Musculoskeletal: Joint swelling no joint pain no new muscle aches or back pain Neuro: No syncope, seizures no loss of consciousness no new focal weakness, numbness or tingling Psychiatric: New new anxiety insomnia or depression Endocrine: No new heat or cold intolerances polyuria or polydipsia Hematology: No lymphadenopathy or easy bleeding or bruising noted skin: No new rashes, stasis dermatitis Physical Exam Template: Exam: NAD BP 126/80 HR 66 RR 20 [facility] [place] [address] Patient Name: HERNANDEZ ADAMS MR#: [id number] Location: [facility] [place] Ordering Phys: Ismael Altamirano MD Date of Service: 12/07/16 0800 PROCEDURE: MRI BRAIN WITHOUT CONTRAST ([id number]) INDICATIONS: stroke TECHNIQUE: Non-contrast axial T1 spin echo, axial T2 fast spin echo, sagittal and axial FLAIR, coronal T2 fast spin echo, axial gradient echo, axial diffusion and ADC through the brain. COMPARISON: None. FINDINGS: Image quality: Limited by motion artifact. CSF spaces: Ventricles appear symmetric in size and shape. Basal cisterns are patent. No extra-axial fluid collections. Brain: No intracranial bleeds or mass effects. There is cerebral volume loss for age. There are periventricular and deep white matter chronic small vessel ischemic changes. Brainstem appears normal. Diffusion-weighted images show no acute ischemic insults. No chronic ischemic insults. No susceptibility weighted abnormalities are identified in the brain parenchyma. Normal intravascular flow voids are present. Skull and face: Calvarial bone marrow is normal in signal. Orbits are normal. Sinuses: Sinuses and mastoids are clear. IMPRESSION: 1. No acute intracranial disease process. 2. No areas of acute or chronic infarction. 3. Moderate, diffuse lung loss. 4. Severe periventricular and subcortical white matter chronic microvascular ischemic changes. Dictated by: Roberta Perkins MD, PhD on 12/07/2016 at 14:09 Approved by: Roberta Perkins MD, PhD on 12/07/2016 at 14:13 [facility] Diagnostic [place] [address] Patient Name: HERNANDEZ ADAMS MR#: [id number] Location: [facility] [place] Ordering Phys: Ismael Altamirano MD Date of Service: 12/06/16 1427 PROCEDURE: US BILATERAL DUPLEX DOPPLER IMAGING OF THE CAROTIDS ([id number]) INDICATIONS: Evaluate stroke follow up TECHNIQUE: Color and pulse Doppler interrogation was performed of both carotid systems, with image documentation and velocity measurements. COMPARISON: None. FINDINGS: All stenosis calculations are based on NASCET criteria. Right side: Brachial blood pressure: 145/90 mm Hg. Common carotid artery peak systolic velocity: 101 cm/sec. Internal carotid artery peak systolic velocity: 85 cm/sec. Internal carotid artery end diastolic velocity: 26 cm/sec. External carotid artery peak systolic velocity: 72 cm/sec. ICA/CCA peak systolic ratio: 0.8. Harding scale imaging description: Mild plaque at the bifurcation. Percent internal carotid artery stenosis: Less than 50%. Vertebral artery: Flow direction is antegrade. Left side: Brachial blood pressure: 136/86 mm Hg. Common carotid artery peak systolic velocity: 102 cm/sec. Internal carotid artery peak systolic velocity: 98 cm/sec. Internal carotid artery end diastolic velocity: 27 cm/sec. External carotid artery peak systolic velocity: 86 cm/sec. ICA/CCA peak systolic ratio: 1.0. Harding scale imaging description: Mild plaque at the bifurcation. Percent internal carotid artery stenosis: Less than 50%. Vertebral artery: Flow direction is antegrade. IMPRESSION: Less than 50% stenosis of the internal carotid arteries bilaterally. Dictated by: Jewell Horta M.D. on 12/06/2016 at 19:27 Approved by: Jewell Horta M.D. on 12/06/2016 at 19:28 Brief History Hernandez Adams is a 81 year old female with Hyperlipidemia, Hypertension and Breast Cancer who presents to [facility] Emergency department complaining of dizziness and double vision. Last known normal 08:00 today. Difficult due to patient being a vague historian. She states that symptoms onset today while getting into the car to come to a routine appointment here a the residency clinic. Symptoms are described primarily as "not feeling right". She admits to stumbling in her house earlier this morning, and numbness of her lower extremities from the knees down bilaterally onset about an hour ago. Now she only complains of generalized weakness She reports the diplopia is an intermittent problem that comes and goes. Usually triggered when she develops a cold. But this episode is more persistent and longer than her previous episodes She has multiple brain MRI done in the past and had some lesions that Dr Wadsworth suspects are related to microvascular infarcts from uncontrolled hypertension rather than Multiple sclerosis. She previously takes an Aspirin daily but not recently She had a object penetrate her left eye as well and had some scarring since. She follows up closely with an operator automated process She lives by herself and able to perform activities of daily living but lately she has been tired and had her neighbour wash he dishes for her Case discussed with Dr Hardin, CT head negative and NIH score was low therefore not a candidate for TPA. Hospital Course Hernandez Adams is a 81 year old female with Hyperlipidemia, Hypertension and Breast Cancer who presents to [facility] Emergency department complaining of dizziness and double vision. 1. Acute on Chronic Diplopia. Present on admission - She was monitored on telemetry - MRA/MRI brain, Carotid Ultrasound: Negative for acute stroke and carotid severe stonosis - Aspirin for antiplatelet therapy was given - Speech, OT and Physical therapy assessment: She passed speech eval - Patient has tried to leave the facility night before discharge but agreed to stay after we explained her the risks of leaving AGAINST MEDICAL ADVICE. However she also declined medical management to control hypertension later. - 2. Hypothyroidism - Synthroid 75 mcg daily given 3. Breast Cancer - recommend a follow up with Dr Samaniego to check for any remission 4. HTN: She declined medications in spite of extensive counseling and stated she would prefer to discuss with her oncologist.. Patient is admitted under observation status with expected length of stay less than 2 midnights due to severity of presenting symptoms, risk of adverse event, and complexity of treatment plan. She will be discharged tomorrow . Exam Vital Signs (Last) Date Time Temp Pulse Resp B/P Pulse Ox O2 Delivery O2 Flow Rate FiO2 12/08/16 09:23 36.7 88 18 147/75 96 Room Air Exam Gen.: No acute distress, asked examiner to speak in low voice HEENT: Normocephalic, atraumatic Heart: Regular and rhythm no S3 murmurs Lungs: CTA bilaterally, no crackles or wheezes Abdomen: Soft, nontender, normal bowel sounds Extremities: Negative for edema MSK normal gait Neuro: No focal deficits Test 12/06/16 12:30 12/06/16 14:38 12/08/16 05:35 Hemoglobin A1c 5.5% (4.8-5.6) Total Bilirubin 0.4mg/dL (0.0-1.2) Aspartate Amino Transf (AST/SGOT) 15U/L (0-50) Alanine Aminotransferase (ALT/SGPT) 14U/L (0-32) Alkaline Phosphatase 64U/L (25-165) Total Protein 6.9g/dL (6.4-8.4) Albumin 4.1g/dL (3.4-5.0) Urine Color Straw (YELLOW) Urine Appearance Hazy (CLEAR,HAZY) Urine pH 6.0 (5.0-8.0) Urine Specific Douglas 1.010 (1.003-1.035) Urine Protein Negativemg/dL (NEG,TRACE) Urine Glucose (UA) Negativemg/dL (NEGATIVE) Urine Ketones Negativemg/dL (NEGATIVE) Urine Occult Blood Trace (NEGATIVE) Urine Nitrite Negative (NEGATIVE) Urine Bilirubin Negative (NEGATIVE) Urine Urobilinogen Normalmg/dL (NORMAL) Urine Leukocyte Esterase Trace (NEGATIVE) Urine RBC 0-2/hpf (0-2) Urine WBC 0-5/hpf (0-5) Urine Epithelial Cells Occasional/hpf (NONE-MOD) Urine Crystals None seen (NONE SEEN) Urine Bacteria None/hpf (NONE-FEW) Urine Hyaline Casts None/lpf (NONE) Urine Granular Casts None seen (NONE SEEN) Urine Waxy Casts None seen (NONE SEEN) Urine Red Blood Cell Casts None seen (NONE SEEN) Urine White Blood Cell Casts None seen (NONE SEEN) Urine Mucus None seen (None Seen) Urine Trichomonas None seen (NONE SEEN) Urine Yeast None (NONE SEEN) Urinalysis Comment None Urine Culture Reflexed Indicated White Blood Count 4.9th/mm3 (3.8-10.1) Red Blood Count 4.38mil/mm3 (3.90-5.20) Hemoglobin 12.9g/dL (12.0-15.6) Hematocrit 39.8% (35.0-46.0) Mean Corpuscular Volume 90.9fL (81-100) Mean Corpuscular Hemoglobin 29.5pg (27.0-35.0) Mean Corpuscular Hemoglobin Concent 32.4% (32.0-37.0) Red Cell Distribution Width 14.4% (12.3-15.4) Platelet Count 279bil/L (150-400) Neutrophils (%) (Auto) 50.7% (40-74) Lymphocytes (%) (Auto) 30.8% (14-46) Monocytes (%) (Auto) 11.0% (4-12) Eosinophils (%) (Auto) 5.5% (0-5) Basophils (%) (Auto) 1.8% (0-3) Sodium Level 141mEq/L (134-144) Potassium Level 4.3mEq/L (3.5-5.2) Chloride Level 106mEq/L (97-108) Carbon Dioxide Level 23mmol/L (18-29) Blood Urea Nitrogen 14mg/dL (8-27) Creatinine 0.76mg/dL (0.57-1.00) Estimat Glomerular Filtration Rate 105mL/min (>59) Glucose Level 101mg/dL (60-99) Calcium Level 8.2mg/dL (8.5-10.1) Discharge Medications Discharge Medications Levothyroxine (Levothyroxine) 75 Mcg Tablet 75 MCG PO DAILY (Reported) Blanche Sun DO Dec 08, 2016 11:07
--- NOTE | 2016-12-08 11:11 | PCM.DIMED ---
Discharge Instructions Date of Service Dec 08, 2016 Dates of Hospitalization Dec 06, 2016 at 14:56 Discharge Diagnosis Discharge Diagnosis Stroke/TIA ruled out, HTN, Breast Cancer, hypothyroidism Test Results Laboratory Tests Test 12/08/16 05:35 White Blood Count 4.9th/mm3 (3.8-10.1) Red Blood Count 4.38mil/mm3 (3.90-5.20) Hemoglobin 12.9g/dL (12.0-15.6) Hematocrit 39.8% (35.0-46.0) Mean Corpuscular Volume 90.9fL (81-100) Mean Corpuscular Hemoglobin 29.5pg (27.0-35.0) Mean Corpuscular Hemoglobin Concent 32.4% (32.0-37.0) Red Cell Distribution Width 14.4% (12.3-15.4) Platelet Count 279bil/L (150-400) Neutrophils (%) (Auto) 50.7% (40-74) Lymphocytes (%) (Auto) 30.8% (14-46) Monocytes (%) (Auto) 11.0% (4-12) Eosinophils (%) (Auto) 5.5% (0-5) Basophils (%) (Auto) 1.8% (0-3) Sodium Level 141mEq/L (134-144) Potassium Level 4.3mEq/L (3.5-5.2) Chloride Level 106mEq/L (97-108) Carbon Dioxide Level 23mmol/L (18-29) Blood Urea Nitrogen 14mg/dL (8-27) Creatinine 0.76mg/dL (0.57-1.00) Estimat Glomerular Filtration Rate 105mL/min (>59) Glucose Level 101mg/dL (60-99) Calcium Level 8.2mg/dL (8.5-10.1) Microbiology 12/06/16 Urine Culture - Final, Complete Mixed Urogenital Bettye Diet Heart Healthy Activity No restrictions Call your provider Fever or Chills, Shortness of breath, Bleeding, Chest pain, Vomitting, Excessive diarrhea, Weakness (unilateral) Patient Instructions We recommended that you start an antihypertensive during this visit. Please discuss this with your. Follow-up with PCP in: 2 weeks Blanche Sun DO Dec 08, 2016 11:11
--- NOTE | 2016-12-08 13:11 | NUR ---
Discharge patient is alert and oriented X3. Denies pain or discomfort. Doctor leonardo spoke to the patient before discharge and received discharge orders. Discontinued IV from the right chest port with out difficulty. per doctor orders patient came from home with port right chest. social media senior associate also spoke to the patient prior to discharge. discharge paperwork and instructions reviewed with patient and understood. patient signed discharge paperwork. patient discharged approx. 1300 accompanied with nursing staff to car parking.
--- NOTE | 2016-12-08 13:46 | NUR ---
Car Was alerted by FACILITIES OPERATOR that pt was unable to locate her car upon dc. Making statements alluding to the fact that it had been stolen. Security was able to locate car out by ER and upon speaking with broadcast supervisor Abigail and LUZ Glass it was determined that pt was at baseline and was cleared by MD for the admitting diagnosis which was CVA. Care conts
--- NOTE | 2016-12-08 13:59 | NUR ---
Social Work Note and D/C Readiness: D&A: Reviewed chart. Pt. is a 81yr old female admitted to [facility] under OBS with TIA/CVA like symptoms. RN reports that pt. will be discharged today. RN/MD requesting PIPER HELPER evaluate pt. for safe d/c plan prior to d/c. Met with pt. explained social work role. Pt. alert and oriented during interview. Pt. up in room independently getting herself dressed. Pt. denies any current d/c needs or concerns. Pt. reports that she resides on [address] alone in small house. Pt. has family in [facility] and close friends nearby. Pt. drove herself to the hospital and feels comfortable driving herself home. Spoke with RN and she confirms that pt. has not received any mind altering medications today. PIPER HELPER asked pt. if she felt like it would be helpful to have friend or family member drive her home. Pt. reports "no". Pt.'s PCP is Dr. Dodd at [facility] residency clinic and she plans to schedule f/u appointment with him within the next few weeks. No additional needs identified at this time. Pt. denies any current d/c planning needs and is alert and oriented. P: Home today. CURRY Choi Addendum: 12/08/16 at 1413 by MANJULA ALLEN Amended: Links added.
[2017-02-08] MEDS ORDERED: HYG25 PO (16:02)
== END 2016-12-08 13:10 | disposition home or self-care (01) ==
LOC: SED 11:43 → OSC 14:56
PROVIDERS: ADMIT Hospitalist; ATTEND Hospitalist
DX: H53.2 Diplopia (principal); E03.9 Hypothyroidism, unspecified; I10 Essential (primary) hypertension; R29.702 NIHSS score 2; R53.1 Weakness; R42 Dizziness and giddiness; E78.5 Hyperlipidemia, unspecified; K21.9 Gastro-esophageal reflux disease without esophagitis; Z88.0 Allergy status to penicillin; Z88.8 Allergy status to other drugs, medicaments and biological substances; Z85.3 Personal history of malignant neoplasm of breast
CPT/HCPCS: 36415; 70450; 70551; 80048; 80053; 80061; 81000; 82948; 83036; 85025; 85027; 87086; 87088; 92610; 93005; 93880; 96360; 97161; 99285; C8929; G0378; G8978; G8979; G8980; G8996; G8997; G8998; J1644; J7030; J7050

== ENCOUNTER 2017-03-11 16:57 | Emergency (ER) | payer MEDICARE, OTHER ==
[~2017-03-11] VITALS: Ht 160 cm; Wt 85.9 kg
[~2017-03-11 16:57] MED LIST changes: -CHOL500011 PO; +HYG25 PO
[2017-03-11 17:03] VITALS: BP 177/113; PULSE 85; RESP 16; O2SAT 97
--- NOTE | 2017-03-11 17:28 | ED.REPORT ---
HPI-General Illness Date of Service Mar 11, 2017 ED Provider: Feli Lainez MD The pt is a 81 y/o female w/ a hx of depression and a parathyroidectomy presenting to the ED complaining of low energy which began a year ago. She also reports increasing generalized weakness and SOB w/ walking. Nursing Notes Stated Complaint: LEGS WEAK AND SWEATING Chief Complaint: General Complaint Nursing Notes Reviewed: Yes Allergies: Coded Allergies: Penicillins (Verified Allergy, Severe, RASH, 03/11/17) codeine (Verified Adverse Reaction, Severe, N/V, 03/11/17) Uncoded Allergies: ENVIRONMENTAL (Adverse Reaction, Severe, ASTHMA, 01/22/15) Scheduled Chlorthalidone (Chlorthalidone) 25 Mg Tablet 12.5 MG PO DAILY Levothyroxine (Levothyroxine) 75 Mcg Tablet 75 MCG PO DAILY General Time Seen by MD: 17:26 Chief Complaint Weakness Hx Obtained From: Patient Arrived By: Walk-in Sudden in Onset?: No Onset Occurred: More than a week ago... (>6 months) Symptom Duration: Since onset Recent Healthcare: No recent hospitalization, Recent doctor visit Past Medical History Past Medical History Hyperlipidemia hyperparathyroid history of bronchospasm, reactive airway disease GERD (history of erosive esophagitis) Hernia History of mild abnormality LFTs Colon polyps UTI Depression Reports: Cancer Reports: Thyroid disease Past Surgical History Port-A-Cath Breast Surgeries, bilateral lumpectomy for cancer parathyroid exploration Reports: Hysterectomy Smoking History Never Smoker Social History Drug Use: Denies drug use Ambulatory Status Independent Review of Systems Decreased energy Full Review of Systems Respiratory: Reports: Shortness of breath (when walking ) Complete sys rev & neg: except as marked. Physical Exam Vital Signs Vital Signs Date Time Temp Pulse Resp B/P Pulse Ox O2 Delivery O2 Flow Rate FiO2 03/11/17 19:40 35.6 84 16 182/92 97 Room Air 03/11/17 17:03 36.2 85 16 177/113 97 Room Air Initial VS: Reviewed General/Constitutional: Awake, Alert Head / Eyes: Atraumatic, Normocephalic ENT: Atraumatic, Airway patent Neck: Atraumatic, Supple, Full range of motion Respiratory / Chest: Atraumatic, Breath sounds NL, Breath sounds = bilat, No respiratory distress, No rales, No rhonchi, No wheezing Cardiovascular: Heart rate NL, Regular rhythm, Heart sounds NL Abdomen: Atraumatic, Soft, Non-tender Skin: Atraumatic, Color NL, No rash, Warm, Dry Neurologic: Oriented X3, Speech NL Psychiatric: Affect NL, Mood NL Interpretation & Diagnostics Lab Results Interpretation Result Diagram: 03/11/17 0000 03/11/17 1800 Test 03/11/17 00:00 03/11/17 18:00 White Blood Count 5.6th/mm3 (3.8-10.1) Red Blood Count 4.80mil/mm3 (3.90-5.20) Hemoglobin 14.7g/dL (12.0-15.6) Hematocrit 44.4% (35.0-46.0) Mean Corpuscular Volume 92.5fL (81-100) Mean Corpuscular Hemoglobin 30.6pg (27.0-35.0) Mean Corpuscular Hemoglobin Concent 33.1% (32.0-37.0) Red Cell Distribution Width 13.7% (12.3-15.4) Platelet Count 264bil/L (150-400) Neutrophils (%) (Auto) 57.3% (40-74) Lymphocytes (%) (Auto) 30.1% (14-46) Monocytes (%) (Auto) 7.2% (4-12) Eosinophils (%) (Auto) 4.3% (0-5) Basophils (%) (Auto) 0.9% (0-3) Sodium Level 140mEq/L (134-144) Potassium Level 4.1mEq/L (3.5-5.2) Chloride Level 104mEq/L (97-108) Carbon Dioxide Level 20mmol/L (18-29) Blood Urea Nitrogen 13mg/dL (8-27) Creatinine 0.76mg/dL (0.57-1.00) Estimat Glomerular Filtration Rate 105mL/min (>59) Glucose Level 109mg/dL (60-99) Calcium Level 9.2mg/dL (8.5-10.1) Magnesium Level 2.1mg/dL (1.6-2.6) Total Bilirubin 0.3mg/dL (0.0-1.2) Aspartate Amino Transf (AST/SGOT) 19U/L (0-50) Alanine Aminotransferase (ALT/SGPT) 13U/L (0-32) Alkaline Phosphatase 67U/L (25-165) Troponin T < 0.010ug/L (0.0-0.011) Total Protein 7.0g/dL (6.4-8.4) Albumin 3.8g/dL (3.4-5.0) Hold Rebollar Top Tube Received (Received) ECG Interpretation ECG Interpretation: Rate 73 Normal sinus rhythm Low voltage, precordial leads Anterior Q waves, possible due to LVH No acute ischemia Time: 17:56 Interpreted by: Key Account Executive X-Ray Chest Interpretation Chest Xray Interpretation: IMPRESSION: 1. No acute cardiopulmonary disease. Dictated by: Kevin Mcdaniel M.D. on 03/11/2017 at 18:36 Approved by: Kevin Mcdaniel M.D. on 03/11/2017 at 18:40 View: Portable, 1 view Interpretation / Wet Read by: Interpret - Radiologist Re-Eval/Medical Decision Med Decision/Clinical Course 81-year-old woman presents with increasing fatigue over the last year. Has noted mild exertional dyspnea. Is unable to say precipitated today's visit. Her plan was to follow-up with her primary care visit but they were unavailable so she came to the emergency department. I am finding no acute issues today and she is reassured. Source of Hx: Old records Time of Eval: 19:28 Re-Evaluation/Progress Note: Pt rechecked. Informed pt of plan for treatment. Pt understands and agrees with plan for treatment. F/Uinstructions and RTER warnings given. All questions addressed. Counseled Regarding: Diagnosis, Lab results, Need for follow-up, When/why to return to ED Discharge & Departure Primary Impression: Exertional dyspnea Disposition: Home Discharge Condition All VS Reviewed: Yes Condition: Stable Additional Instructions: Thank you for entrusting us with your care today. Your labs and chest X-ray results all look normal. You can make a follow up appointment with Dr. Samaniego to discuss your thyroid levels. I hope you feel better. Referrals: Arnol Phillips MD (PCP) Glen Samaniego MD (Family) Scribe Attestation Portions of this note were transcribed by Jorge Alberto Doty. I, Dr. Lainez personally performed the history, physical exam and medical decision-making; I reviewed and confirmed the accuracy of the information in the transcribed note. Signed by : Jamarcus Boss, 03/11/17 and 1825. copies to: Glen Samaniego MD; Arnol Phillips MD, Shawna L MD Mar 11, 2017 17:27 Jorge Alberto Doty Mar 11, 2017 18:25
[2017-03-11 18:28] LABS: BASOPHILS % (AUTO) 0.9 % (0-3); EOSINOPHILS % (AUTO) 4.3 % (0-5); MONOCYTES % (AUTO) 7.2 % (4-12); Mean Corpuscular Hemoglobin 30.6 pg (27.0-35.0); Mean Corpuscular Volume 92.5 fL (81-100); NEUTROPHILS % (AUTO) 57.3 % (40-74); Platelet Count 264 bil/L (150-400)
--- NOTE | 2017-03-11 18:42 | DRSVH ---
PROCEDURE: X-RAY CHEST ONE VIEW, PORTABLE ([id number]) INDICATIONS: weakness TECHNIQUE: One view of the chest was acquired. COMPARISON: [facility], CR, XR CHEST 2VW, 02/10/2017, 10:21. FINDINGS: Surgical changes and devices: Right chest wall subcutaneous Port-A-Cath appears stable in position. There are multiple surgical clips demonstrated bilaterally. Lungs and pleura: No pleural effusions or pneumothorax. Lungs are clear. Mediastinum: Mediastinal contours appear normal. Heart size is normal. Bones and chest wall: No suspicious bony lesions. Overlying soft tissues appear unremarkable. IMPRESSION: 1. No acute cardiopulmonary disease. Dictated by: Kevin Mcdaniel M.D. on 03/11/2017 at 18:36 Approved by: Kevin Mcdaniel M.D. on 03/11/2017 at 18:40
[2017-03-11 18:56] LABS: TROPONIN T < 0.010 ug/L (0.0-0.011)
[2017-03-11 19:04] LABS: Magnesium 2.1 mg/dL (1.6-2.6)
[2017-03-11 19:40] VITALS: BP 182/92; PULSE 84; RESP 16; O2SAT 97
== END 2017-03-11 19:53 | disposition home or self-care (01) ==
LOC: SED 16:57
DX: R06.09 Other forms of dyspnea (principal); R53.83 Other fatigue; R53.1 Weakness; F32.9 Major depressive disorder, single episode, unspecified; E78.5 Hyperlipidemia, unspecified; E21.3 Hyperparathyroidism, unspecified; K21.9 Gastro-esophageal reflux disease without esophagitis; Z85.3 Personal history of malignant neoplasm of breast; Z90.89 Acquired absence of other organs; Z90.13 Acquired absence of bilateral breasts and nipples; Z88.0 Allergy status to penicillin; Z88.5 Allergy status to narcotic agent

== ENCOUNTER 2017-03-21 13:29 | Emergency (ER) | payer MEDICARE, OTHER ==
[~2017-03-21] VITALS: Ht 160 cm; Wt 88.0 kg
[2017-03-21 13:30] VITALS: BP 186/79; PULSE 79; RESP 17; O2SAT 97
--- NOTE | 2017-03-21 15:00 | ED.REPORT ---
HPI-Dizziness / Weakness Date of Service Mar 21, 2017 ED Provider: Abigail Valdes History of Present Illness: weak again ongoing for 10 years with sweating. primary care is no one. Sees Saw someone at [facility], did not feel it was a good fit. Nursing Notes Stated Complaint: SICK/DIZZY Chief Complaint: General Complaint Nursing Notes Reviewed: Yes Allergies: Coded Allergies: Penicillins (Verified Allergy, Severe, RASH, 03/21/17) codeine (Verified Adverse Reaction, Severe, N/V, 03/21/17) Uncoded Allergies: ENVIRONMENTAL (Adverse Reaction, Severe, ASTHMA, 01/22/15) Scheduled Chlorthalidone (Chlorthalidone) 25 Mg Tablet 12.5 MG PO DAILY Levothyroxine (Levothyroxine) 75 Mcg Tablet 75 MCG PO DAILY General Time Seen by MD: 14:56 Chief Complaint Generalized weakness Hx Obtained From: Patient Past Medical History Past Medical History Hyperlipidemia hyperparathyroid history of bronchospasm, reactive airway disease GERD (history of erosive esophagitis) Hernia History of mild abnormality LFTs Colon polyps UTI Depression Reports: Cancer Reports: Thyroid disease Past Surgical History Port-A-Cath Breast Surgeries, bilateral lumpectomy for cancer parathyroid exploration Reports: Hysterectomy Smoking History Never Smoker Social History Alcohol Use: "Social" Drug Use: Denies drug use Occupation lives by self, 03/21/2017 Ambulatory Status Independent Review of Systems Basic Review of Systems : No dysuria, No frequency Allergy / Immune: No allergy Physical Exam Initial Vital Signs Vital Signs (First) Date Time Temp Pulse Resp B/P Pulse Ox O2 Delivery O2 Flow Rate FiO2 03/21/17 13:30 36.9 79 17 186/79 97 Room Air Initial VS: Reviewed, Vital signs abnormal ENT: Mucous membranes moist, Conjunctiva normal, No scleral icterus Neck: Supple, Non-tender, Full range of motion Abdomen / GI: Soft, Non-tender, No guarding, No rebound, No distention Back: No CVA tenderness Lymphatic: No lymphadenopathy Extremities: Vascular intact, Neuro intact, No swelling, No tenderness Skin: Warm, Dry, No cyanosis Psychiatric: Mood/affect normal, Behavior normal, Normal thought content General/Constitutional: Awake, Alert, No acute distress, Well appearing, Well developed, Well hydrated Head / Eyes: Atraumatic, Normocephalic, PERRL, EOMI Respiratory / Chest: Atraumatic, Breath sounds NL, Breath sounds = bilat, No respiratory distress Cardiovascular: Heart rate NL, Regular rhythm, Heart sounds NL, No gallop Neurologic: Oriented X3, Speech NL, No motor deficits Interpretation & Diagnostics Lab Results Interpretation Result Diagram: 03/21/17 1520 03/21/17 1520 Test 03/21/17 15:20 03/21/17 15:24 White Blood Count 8.1th/mm3 (3.8-10.1) Red Blood Count 4.61mil/mm3 (3.90-5.20) Hemoglobin 14.0g/dL (12.0-15.6) Hematocrit 41.5% (35.0-46.0) Mean Corpuscular Volume 90.0fL (81-100) Mean Corpuscular Hemoglobin 30.4pg (27.0-35.0) Mean Corpuscular Hemoglobin Concent 33.7% (32.0-37.0) Red Cell Distribution Width 13.8% (12.3-15.4) Platelet Count 261bil/L (150-400) Neutrophils (%) (Auto) 69.0% (40-74) Lymphocytes (%) (Auto) 20.5% (14-46) Monocytes (%) (Auto) 7.0% (4-12) Eosinophils (%) (Auto) 2.5% (0-5) Basophils (%) (Auto) 1.0% (0-3) Sodium Level 139mEq/L (134-144) Potassium Level 4.3mEq/L (3.5-5.2) Chloride Level 104mEq/L (97-108) Carbon Dioxide Level 21mmol/L (18-29) Blood Urea Nitrogen 14mg/dL (8-27) Creatinine 0.96mg/dL (0.57-1.00) Estimat Glomerular Filtration Rate 80mL/min (>59) Glucose Level 104mg/dL (60-99) Calcium Level 9.0mg/dL (8.5-10.1) Total Bilirubin 0.3mg/dL (0.0-1.2) Aspartate Amino Transf (AST/SGOT) 17U/L (0-50) Alanine Aminotransferase (ALT/SGPT) 14U/L (0-32) Alkaline Phosphatase 65U/L (25-165) Troponin T < 0.010ug/L (0.0-0.011) Pro-B-Type Natriuretic Peptide 259.8pg/mL (0-738) Total Protein 6.7g/dL (6.4-8.4) Albumin 3.7g/dL (3.4-5.0) Hold Urine Received (Received) Re-Eval/Medical Decision Med Decision/Clinical Course 81 year old female with memory issues presents to the ER for evualation of weakness. ADMINISTRATIVE DIETITIAN meet with patient and was able to call son and have him be more involved in Mom's care. No sign of stroke or cardiac issues. Patient Discharge & Departure Impression: Primary Impression: Generalized weakness Additional Impressions: Elevated blood pressure reading Memory loss or impairment Disposition: Home Patient Instructions: Memory Loss in Older Adults (GEN), Weakness (ED) Additional Instructions: Your labs are all good. No sign of a cardiac event or heart failure. The head CT is normal. You had an MRI of the brain in October of this year which was normal. Your blood pressure was up. When you saw Dr. Samaniego he wanted you to get connected in primary care. He also had concerns that you are not taking letrozole, a medication that can prevent your breast cancer from returning. It seems you are forgetting. These events taken together are concerning for not doing the best that you can for your health. Your son will be checking on you this evening. I hope he is able to make sure you are taking your medications and making all your appointments. Referrals: Candis Will MD EDSupervising Provider for APC: Ryan Quiles MD, Johnna K MD Baerg, Sue ARNP Mar 21, 2017 15:00
[2017-03-21 15:38] LABS: EOSINOPHILS % (AUTO) 2.5 % (0-5); Mean Corpuscular Hemoglobin 30.4 pg (27.0-35.0); Platelet Count 261 bil/L (150-400)
[2017-03-21 16:05] LABS: TROPONIN T < 0.010 ug/L (0.0-0.011)
--- NOTE | 2017-03-21 16:11 | DRSVH ---
PROCEDURE: CT BRAIN WITHOUT CONTRAST ([id number]) INDICATIONS: weak TECHNIQUE: Noncontrast 4.5 mm thick angled axial sections acquired from the foramen magnum to the vertex, with c oronal reformats. COMPARISON: [facility], MR, MR BRAIN WO CON, 12/07/2016, 12:51. [facility], MR, MR BRAIN WO CON, 10/19/2016, 14:33. [facility], CT, CT BRAIN WO CON, 12/06/2016, 13:09 . [facility], CT, BRAIN ([facility]PA), 05/18/2016, 15:43. FINDINGS: Image quality: Excellent. CSF spaces: Basal cisterns are patent. No extra-axial fluid collections. The ventricles are symmet berenice in size and shape. Brain: No intracranial bleeds or masses. There is cerebral volume loss for age, with resultant vent ricular and sulcal prominence. There are severe periventricular and deep white matter chronic small vessel ischemic changes. Old left thalamic lacunar infarct noted. There is intracranial internal villegas tid artery and vertebral artery atherosclerosis. Skull and face: Calvarium and visualized facial bones appear intact, without suspicious lesions. Sinuses: Visualized sinuses and mastoids are clear. IMPRESSION: No acute intracranial disease process. Dictated by: Roberta Perkins MD, PhD on 03/21/2017 at 16:07 Approved by: Roberta Perkins MD, PhD on 03/21/2017 at 16:10
--- NOTE | 2017-03-21 16:38 | DRSVH ---
PROCEDURE: X-RAY CHEST, TWO VIEWS ([id number]) INDICATIONS: weak TECHNIQUE: 2 views of the chest were acquired. COMPARISON: [facility], CR, XR CHEST 2VW, 02/10/2017, 10:21. FINDINGS: Surgical changes and devices: There is a Port-A-Cath on the right with the tip in the superior vena c cher. Lungs and pleura: No pleural effusions or pneumothorax. Lungs are clear. Mediastinum: Mediastinal contours are normal. Heart size is normal. Bones and chest wall: No suspicious bony abnormalities. Soft tissues appear unremarkable. IMPRESSION: No acute cardiopulmonary disease. Dictated by: Erik Peguero M.D. on 03/21/2017 at 16:37 Transcribed by: JOSUÉ on 03/21/2017 at 16:37 Approved by: Roberta Perkins MD, PhD on 03/21/2017 at 16:44
[2017-03-21 17:28] VITALS: BP_SYST 164; BP_SYST 165; BP_SYST 168; BP_DIAS 84; BP_DIAS 95; BP_DIAS 96; PULSE 79; PULSE 85; PULSE 91; O2SAT 96
== END 2017-03-21 17:20 | disposition home or self-care (01) ==
LOC: SED 13:29
DX: R53.1 Weakness (principal); R03.0 Elevated blood-pressure reading, without diagnosis of hypertension; R41.3 Other amnesia; E78.5 Hyperlipidemia, unspecified; K21.9 Gastro-esophageal reflux disease without esophagitis; Z87.440 Personal history of urinary (tract) infections; Z86.39 Personal history of other endocrine, nutritional and metabolic disease; Z90.710 Acquired absence of both cervix and uterus; Z85.3 Personal history of malignant neoplasm of breast; Z88.0 Allergy status to penicillin; Z88.5 Allergy status to narcotic agent

== ENCOUNTER 2017-05-12 13:39 | Emergency (ER) | payer MEDICARE, OTHER ==
[~2017-05-12] VITALS: Ht 160 cm; Wt 81.8 kg
[2017-05-12 13:53] VITALS: BP 187/119; PULSE 55; RESP 12; O2SAT 100
== END 2017-05-12 14:28 | disposition left against medical advice (07) ==
LOC: SED 13:39
DX: I10 Essential (primary) hypertension (principal); Z53.29 Procedure and treatment not carried out because of patient's decision for other reasons

== ENCOUNTER 2017-05-12 16:17 | Emergency (ER) | payer MEDICARE, OTHER ==
[~2017-05-12] VITALS: Ht 160 cm; Wt 83.2 kg
[2017-05-12 16:21] VITALS: BP 119/94; PULSE 82; RESP 20; O2SAT 97
--- NOTE | 2017-05-12 16:49 | ED.REPORT ---
HPI-Psychiatric Illness Date of Service May 12, 2017 ED Provider: Abigail Valdes History of Present Illness: knows address. states will continue to drive. lives by self. kids live in [place] and [place]. primary care is no one per her report.Strong odor of urine is noted on entering room. Patient states she is going to fight the ticket that had her bellman driver's liscense revoked. Patient does not have any specific compliant at this time. Socail worker is just finishing speaking with her and leaves the room as I enter. 2 minutes later she asks if she can talk with social service coordinator. Advised her she had spoken with social service coordinator. Nursing Notes Stated Complaint: MENTAL HEALTH EVALUTION Chief Complaint: Psychiatric Complaint Nursing Notes Reviewed: Yes Allergies: Coded Allergies: Penicillins (Verified Allergy, Severe, RASH, 03/21/17) codeine (Verified Adverse Reaction, Severe, N/V, 03/21/17) Uncoded Allergies: ENVIRONMENTAL (Adverse Reaction, Severe, ASTHMA, 01/22/15) Scheduled Chlorthalidone (Chlorthalidone) 25 Mg Tablet 12.5 MG PO DAILY Levothyroxine (Levothyroxine) 75 Mcg Tablet 75 MCG PO DAILY General Time Seen by MD: 16:48 Chief Complaint Other (driving after she has been told she has no bellman driver's liscense) Hx Obtained From: Patient Onset Occurred: More than a week ago... (2 weeks) Risk-Psychiatric Illness Suicide Risk Stratification Suicide Risk Factors - Adult: No: Access to firearms, Alcohol use, Close associate suicide, Family Hx of Suicide, Previous attempt, Prior psych admission , Substance abuse RF Statements: Risk factors reviewed Past Medical History Past Medical History Hyperlipidemia hyperparathyroid history of bronchospasm, reactive airway disease GERD (history of erosive esophagitis) Hernia History of mild abnormality LFTs Colon polyps UTI Depression Reports: Cancer Reports: Thyroid disease Past Surgical History Port-A-Cath Breast Surgeries, bilateral lumpectomy for cancer parathyroid exploration Reports: Hysterectomy Smoking History Never Smoker Social History Alcohol Use: "Social" Drug Use: Denies drug use Occupation lives by self, 03/21/2017 Ambulatory Status Independent Review of Systems Basic Review of Systems Eyes: Vision NL, No discharge ENT: Hearing NL, No pain, No nasal congestion, No pharyngeal pain Hematologic: No bleeding, No bruising Physical Exam Initial Vital Signs Vital Signs (First) Date Time Temp Pulse Resp B/P Pulse Ox O2 Delivery O2 Flow Rate FiO2 05/12/17 16:21 36.6 82 20 119/94 97 Room Air Initial VS: Reviewed, Vital signs normal Head / Eyes: Atraumatic, Normocephalic, PERRL ENT: Mucous membranes moist, Conjunctiva normal, No scleral icterus Neck: Supple, Non-tender, Full range of motion Respiratory: Breath sounds normal, Clear to auscultation, No respiratory distress Cardiovascular: Regular rate & rhythm, Heart sounds normal, Intact distal pulses Abdomen / GI: Soft, Non-tender, No guarding, No rebound, No distention Back: No CVA tenderness Lymphatic: No lymphadenopathy Extremities: Vascular intact, Neuro intact, No swelling, No tenderness Skin: Warm, Dry, No cyanosis General/Constitutional: Awake, Alert, No acute distress, Well appearing, Well developed, Well hydrated, Well nourished, Cooperative, Not toxic appearing patient is well dressed, able to carry on a conservation, answers questions. Unaware of the urine odor. Katarzyna feels she was wrongly accused that is why she lost ther bellman driver's liscense. Patient lives on [address] and she states the bus does not go to her house. Neurologic: Oriented X3, Speech NL, No motor deficits, No sensory deficits, CN II - XII intact Psychiatric: Affect NL, Mood NL, Not suicidal Respiratory / Chest: Atraumatic, Breath sounds NL, Breath sounds = bilat, No respiratory distress Cardiovascular: Heart rate NL, Regular rhythm, Heart sounds NL, No gallop Abdomen: Atraumatic, Soft, Non-tender Re-Eval/Medical Decision Med Decision/Clinical Course 81 year old female presents to the ER. She is unsure why she is here. She is aware she is not supposed to drive but states she will continue as she does not have alternative transportation. She states her plan is to fight the ticket that she believes caused her to lose her liscense. Imaging the patient has had in the last [address] 03/21/2017, Chest x-ray 03/21/2017, Breast ultrasound 03/02/2017, Brain MRI and Cartoid doppler 12/06/2016. All have been unremarkable. Has had extensive labs in March and April which have been unremarkable. While she has urinary control issues, and certainly poor judgement and likely early dementia, at this time I do not have enough data to detain her. She is denied SI or HI, no sign of unbridled parnoia at this time. Discussed with LURER, will place a call to [employer] to see what the home situation is like. Discharge & Departure Impression: Primary Impression: Acute situational disturbance Additional Instructions: At this time you are cleared for discharge. You have been offered a bus ticket. Hopefully your son will visit this weekend and the 2 of your can work on some of your issues. Please make sure to take all of your medication as directed. Return to the ER with any concerns. Referrals: Arnol Phillips MD (PCP) EDSupervising Provider for APC: Fermin Scales MD copies to: Arnol Phillips MD, Sue ARNP May 12, 2017 16:49
== END 2017-05-12 18:59 ==
LOC: SED 16:17
DX: F43.0 Acute stress reaction (principal); E78.5 Hyperlipidemia, unspecified; K21.9 Gastro-esophageal reflux disease without esophagitis; F32.9 Major depressive disorder, single episode, unspecified; Z88.0 Allergy status to penicillin; Z88.5 Allergy status to narcotic agent; Z87.440 Personal history of urinary (tract) infections